=== PATIENT | female | born 1980 | race Caucasian/White ===

== ENCOUNTER 2018-11-07 18:17 | Emergency (ER) | payer MEDICAID ==
[~2018-11-07] VITALS: Ht 157.5 cm; Wt 60.8 kg
[~2018-11-07 18:17] MED LIST: AMOX500C2 PO; BEN25 PO; HYDR-4011 PO; NAPR-985 PO
[2018-11-07 18:26] VITALS: Ht 157.5 cm; Wt 60.8 kg
[2018-11-07] MEDS ORDERED: KETOROLAC 30 MG INJ IM STA (19:33)
[2018-11-07 20:01] VITALS: BP 112/76; PULSE 66; RESP 18
--- NOTE | 2018-11-07 20:27 | ERD ---
ER Documentation Chief Complaint Chief Complaint DENTAL PAIN, LEFT SIDE X1DAY HPI This is a 38-year-old female otherwise healthy presents to the emergency department complaining of left lower molar dental pain which began yesterday after having dental work done. Pain is 10/10 severity, constant, without alleviating factors. She took Tylenol at home without significant relief. She denies any fevers, chills, or other symptoms at this time. ROS All systems reviewed and are negative except as per history of present illness. Medications Home Meds Active Scripts Diphenhydramine Hcl* (Benadryl*) 25 Mg Cap, 25 MG PO Q6 PRN for ITCHING/RASH, #3 0 TAB Prov:JULIUS STEVEN PA-C 11/07/18 Naproxen* (Naprosyn*) 500 Mg Tablet, 500 MG PO BID PRN for PAIN AND/OR INFLAMMATION, #30 TAB Prov:JULIUS STEVEN PA-C 11/07/18 Hydrocodone/Acetaminophen (Holbrook 5-325 Tablet) 1 Each Tablet, 1 TAB PO Q6H PRN for PAIN, #7 TAB Prov:JULIUS STEVEN PA-C 11/07/18 Amoxicillin* (Amoxicillin*) 500 Mg Cap, 500 MG PO TID for 10 Days, CAP Prov:JULIUS STEVEN PA-C 11/07/18 PMhx/Soc Medical and Surgical Hx: pt denies Medical Hx, pt denies Surgical Hx Hx Neurological Disorder: No Hx Respiratory Disorders: No Hx Cardiac Disorders: No Hx Psychiatric Problems: No Hx Miscellaneous Medical Probl: No Hx Alcohol Use: No Hx Substance Use: No Hx Tobacco Use: No Smoking Status: Never smoker FmHx Family History: No diabetes Physical Exam Vitals Vital Signs Date Temp Pulse Resp B/P (MAP) Pulse Ox O2 O2 Flow FiO2 Time Delivery Rate 11/07/18 98.1 66 18 112/76 98 Room Air 20:01 (88) 11/07/18 98.7 66 19 112/73 99 18:26 (86) Physical Exam Const: Acute distress secondary to pain. Head: Atraumatic Eyes: Normal Conjunctiva ENT: Normal External Ears, Nose and Mouth.. Poor dentition. Gums swelling noted to the left lower molar region without obvious dental abscess. Neck: Full range of motion. No meningismus. Resp: Clear to auscultation bilaterally Cardio: Regular rate and rhythm, no murmurs Skin: No petechiae or rashes Ext: No cyanosis, or edema Neur: Awake and alert Psych: Normal Mood and Affect Results 24 hrs Laboratory Tests Test 11/07/18 19:46 11/07/18 19:48 Bedside Urine pH (LAB) 5.5 Bedside Urine Protein (LAB) Negative Bedside Urine Glucose (UA) 0.50% Bedside Urine Ketones (LAB) Negative Bedside Urine Blood Negative Bedside Urine Nitrite (LAB) Negative Bedside Urine Leukocyte Esterase (L Negative POC Beta HCG, Qualitative NEGATIVE Current Medications Medications Dose Sig/Anne Marie Start Time Status Last (Trade) Ordered Route PRN Stop Time Admin Dose Reason Admin Ketorolac 30 mg ONCE STAT 11/07/18 DC 11/07/18 Tromethamine IM 19:33 19:50 (Toradol) 11/07/18 19:35 Procedures/MDM 38-year-old female is presenting to the emergency department complaining of dent al pain. No obvious dental abscess noted on examination. Patient does appear to be in acute distress secondary to pain. Patient is nontoxic appearing with stable vital signs. She is afebrile. She was administered Toradol in the department for pain with improvement prior to discharge. She will be given prescription for naproxen, Holbrook, Benadryl, amoxicillin in case of infectious etiology. Patient was advised to follow-up with her dentist tomorrow and return to the department immediately for any new or concerning symptoms. I shared my medical decision making with the patient and she understands and agrees with the plan. Departure Diagnosis: Primary Impression: Pain, dental Condition: Fair Patient Instructions: Dental Pain Referrals: [facility] se welch hecho un examen mdico de control que le indica que no est en garth condicin que requiera tratamiento urgente en el Departamento de Emergencia. Un estudio ms profundo y el tratamiento de morales condicin pueden esperar sin ningn riesgo hasta que usted sea atendida/o en el consultorio de morales mdico o garth clnica. Es responsabilidad suya arreglar garth darcy para el seguimiento del deshaun. MANEJO DE CONDICIONES NO URGENTES EN EL FUTURO 1) Si usted tiene un mdico de atencin primaria: Usted debera llamar a morales mdico de atencin primaria antes de venir al departamento de emergencia. Despus de las horas de consultorio, morales doctor o morales asociado/a est disponible por telfono. El mdico o enfermero de bg en el servicio telefnico puede asesorarle por shruthi medio para atender el problema, o deshaun contrario se puede programar garth darcy. 2) Si usted no tiene un mdico de atencin primaria: Llame al mdico o clnica de referencia que aparece abajo zoila las horas de consultorio para hacer garth darcy para que le vean. CLINICAS: [facility] [phone] [facility] [phone] [facility] [phone] [address] [facility]. [facility] [phone] [address] [facility] [phone] [facility] [facility] [phone] [address] [facility] [facility] ([facility] walk in clinic) Additional Instructions: Llame al doctor MAANA y corey garth DARCY PARA DENTRO DE 1-2 QUILES.Dgale a la secretaria que nosotros le instruimos hacer esta darcy.Avise o llame si morales condicin se empeora antes de la darcy. Regresa aqui si peor o no mejor. JULIUS STEVEN PA-C Nov 07, 2018 20:27
== END 2018-11-07 20:02 | disposition home or self-care (01) ==
LOC: FTE 18:17
DX: K08.89 Other specified disorders of teeth and supporting structures (principal)
CPT/HCPCS: 81003; 81025; 96372; J1885; Z7502